=== PATIENT | male | born 1945 | race Caucasian/White ===

== ENCOUNTER → 2021-03-14 07:11 | Outpatient (CLI) | payer MEDICARE, SELFPAY ==
--- NOTE | 2021-03-14 07:18 | CT_ITS ---
STUDY: CT ABDOMEN AND PELVIS WITH AND WITHOUT CONTRAST REASON FOR EXAM: Male, 75 years old. 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 Oral and amp; IV Readi-CAT and amp; 100mL Isovue-300 was administered. Sagittal and coronal images were reconstructed. Individualized dose optimization techniques were used for this CT. COMPARISON: None. FINDINGS: Minimal increased markings at the lung bases suggests a mild scarring. Prior CABG coronary artery calcification. There is decreased attenuation of the liver consistent with steatosis. There are multiple small layering gallstones. Normal spleen. Normal pancreas. Normal bilateral adrenal glands. 2 mm nonobstructive calculus in the lower pole calyx of the right kidney. Normal left kidney. Normal visualized stomach. Normal small intestine. There are scattered colonic diverticula consistent with diverticulosis. The appendix is visualized and appears normal. There is diffuse atherosclerotic calcification of the abdominal aorta and its major visceral branches, without a demonstrated aneurysm. Normal inferior vena cava. Normal retroperitoneum. Normal urinary bladder. There are prostatic calcifications. Dense calcification of the vas deferens more prominent on the right side. Penile prosthesis. There is a moderate-sized umbilical hernia containing fat. There are diffuse degenerative changes of the visualized lumbar spine. CT/CT Abd/Pelvis W/WO Contrast IMPRESSION: Fatty infiltration of the liver. Calcification of the vas deferens more prominent on the right side. Prostatic calcification. Small gallstones. Electronically Signed: Estuardo Martínez MD at 9:58 EDT , Service support ,
[2021-03-14 07:30] LABS: CREATININE FINGERSTICK 1.1 mg/dL (0.70-1.30); EGFR FINGERSTICK > 60.0000 mL/min (>60)
== END ==
PROVIDERS: PCP Family Medicine; Referring Provider Nurse Practitioner Adult Health; Visit Provider Nurse Practitioner Adult Health
DX: R97.21 Rising PSA following treatment for malignant neoplasm of prostate (principal); Z85.46 Personal history of malignant neoplasm of prostate
CPT/HCPCS: 74178; Q9967

== ENCOUNTER → 2021-03-18 07:41 | Outpatient (CLI) | payer MEDICARE, SELFPAY ==
--- NOTE | 2021-03-18 07:51 | NM_ITS ---
CLINICAL: 75-year-old male with reported history of carcinoma of the prostate. WHOLE BODY 99m Tc MDP RADIONUCLIDE BONE SCINTIGRAPHY COMPARISON: Whole body bone scintigraphy study dated 03/18/2021 FINDINGS: Following the intravenous administration of 26.8 mCi of 99m Tc MDP, whole body bone images reveal: 1. Increased radiopharmaceutical concentration is defined in the acromioclavicular, sternoclavicular and glenohumeral compartments of both shoulders, wrist articulations bilaterally, mid cervical spine posteriorly on the left and right, eighth thoracic vertebra posteriorly on the right, 12th thoracic vertebra posteriorly on the left and right, mid cervical spine posteriorly on the right, lower cervical spine posteriorly on the left, medial tibial compartments of both knees, lateral tibial compartment of the left knee, right-left midfoot. 2. The remaining skeletal structures are scintigraphically unremarkable with normal-appearing renal images and urinary bladder activity identified. There is visualized apparent labeled urine artifact in the right lower anterior pelvis in region of the external genitalia. NM/Bone Scan Whole Body IMPRESSION: 1. The increase in radiopharmaceutical distribution visualized in the bilateral shoulders, right and left wrists, cervical and thoracic spine, knees bilaterally, right-left midfoot is most consistent with degenerative arthritis. 2. No other definitive scintigraphic abnormalities are demonstrated. There is no current typical scintigraphic evidence of diffuse axial skeletal metastatic disease on the current examination. Electronically Signed: Deric Crowley DO at 23:25 EDT Tel , Service support ,
== END ==
PROVIDERS: PCP Family Medicine; Referring Provider Nurse Practitioner Adult Health; Visit Provider Nurse Practitioner Adult Health
DX: R97.21 Rising PSA following treatment for malignant neoplasm of prostate (principal); Z85.46 Personal history of malignant neoplasm of prostate
CPT/HCPCS: 78306; A9503

== ENCOUNTER → 2021-04-23 13:46 | Outpatient (CLI) | payer MEDICARE, SELFPAY ==
--- NOTE | 2021-04-30 14:00 | PET_ITS ---
EXAMINATION: 18F Fluciclovine PET/CT CLINICAL HISTORY: A 75-year-old male with history of carcinoma of the prostate presenting for restaging examination. COMPARISON EXAMINATION: CT of the abdomen and pelvis report dated 03/14/21, whole body bone scintigraphy report dated 03/18/21. PROCEDURE: The patient received an intravenous bolus injection of 9.5 mCi of Axumin (fluciclovine F-18) via the right antecubital fossa, on the imaging table with the patient in the supine position followed by an intravenous normal saline flush. The patient in the supine position with arms above the head, CT scan for attenuation correction was performed immediately following the bolus injection and left up for 1-2 minutes. The PET scan acquisition was begun within 3-5 minutes following injection from mid-thigh to the base of the skull. The total scan time was registered between 20-30 minutes. Axumin (fluciclovine F-18) injection is indicated for positron emission tomography PET imaging in men with suspected prostate cancer recurrence based on elevation of the serum prostatic surface antigen (PSA) levels following prior treatment intervention. HEIGHT: 67 inches. WEIGHT: 270 lbs. FINDINGS: Head/Neck: There is symmetric radiopharmaceutical concentration defined in the bilateral parotid and submandibular glands. There is no evidence of abnormal increased radiopharmaceutical concentration on meticulous inspection of the visualized cranial vault and neck structures. CHEST: There is mild increased tracer concentration noted in the left ventricular myocardium. Otherwise, there is no evidence of abnormal increased radiopharmaceutical concentration on review of all three axis reconstructions. The CT of the chest demonstrates the following characteristics. There is evidence of prior median sternotomy. Atherosclerotic calcification is defined in the thoracic aorta without evidence of aneurysm formation. Coronary arterial calcification is observed. Calcified and noncalcified mediastinal soft tissue and scattered bilateral axillary soft tissue densities are ametabolic. There are no parenchymal densities-nodules defined in the right and left hemithorax with discernable increased FDG concentration. Abdomen/Pelvis: There is no evidence of abnormal increased radiopharmaceutical concentration on review of the abdomen-pelvis to include the carinal, sagittal, and axial reconstructions. Physiologic tracer uptake is defined in the hepatic, splenic parenchyma, the pancreatic head-tail, right and left kidneys, intestinal tract, and urinary bladder. Cholelithiasis is defined. Review of CT of the abdomen and pelvis is remarkable for the ensuing anatomic changes. There is atherosclerotic calcification defined in the abdominal aorta without evidence of dilatation-aneurysm formation. Pelvic arterial calcification is encountered. A fat containing periumbilical hernia is visualized. Right and left inguinal soft tissue densities with fatty hilus reveal no evidence of increased tracer uptake. A fat containing left inguinal hernia is observed. Postsurgical changes are noted in the region of the prostatic bed. Skeletal: Degenerative changes defined in the cervical, thoracic and lumbar spine demonstrate no evidence of glucose hypermetabolism. There is no definitive sclerotic, mixed sclerotic-lytic and/or primarily lytic changes noted on review of the axial and appendicular skeleton. PET/PET/CT Tumor Base -Thigh Subs IMPRESSION: 1. NEGATIVE EXAMINATION. There is no definitive quantitative scintigraphic evidence of fluciclovine avid viable neoplasm. Electronic Signature Deric Crowley D.O. Electronically Signed: Deric Crowley DO at 21:34 EDT Tel , Service support ,
== END ==
PROVIDERS: PCP Family Medicine; Referring Provider Nurse Practitioner Adult Health; Visit Provider Nurse Practitioner Adult Health
DX: R97.21 Rising PSA following treatment for malignant neoplasm of prostate (principal); Z85.46 Personal history of malignant neoplasm of prostate
CPT/HCPCS: 78815; A9552; A9588

== ENCOUNTER → 2023-04-23 | Outpatient (CLI) | payer MEDICARE, SELFPAY ==
--- NOTE | 2023-04-23 07:21 | CT_ITS ---
STUDY: CT ABDOMEN AND PELVIS WITH CONTRAST - URINARY TRACT REASON FOR EXAM: Male, 77 years old. RISING PSA FOLLOWING TREATMENT FOR NEOPLASM OF PROSTATE RADIATION DOSAGE (If Supplied By Facility): CTDIvol = ( 20.32 ) mGy, DLP = ( 1319.63 ) mGycm TECHNIQUE: IV 100mL Isovue-370 was administered. Transaxial images were obtained from the dome of the diaphragm to the symphysis pubis in the arterial, nephrographic and excretory phases. Multiplanar coronal and sagittal images were reformatted. Individualized Dose Optimization Techniques Were Used For This CT. COMPARISON: March 14, 2021 FINDINGS: There is mild compressive atelectasis at the lung bases. The visualized portions of the heart are within normal limits. Normal liver. Normal gallbladder and extrahepatic biliary system. Normal spleen. Normal pancreas. Normal bilateral adrenal glands. Normal visualized stomach. Normal small intestine. There is descending colon and sigmoid diverticulosis without evidence for acute diverticulitis. The appendix is visualized and appears normal. Normal abdominal aorta. No retroperitoneal adenopathy. There are mildly prominent preesophageal lymph nodes measuring up to 1.6 cm in greatest dimension. Normal right kidney. Normal left kidney. Evaluation of the urinary bladder is limited secondary to under distention. Prostate seed implants are identified. There is a small paraumbilical hernia containing fat. Normal osseous structures. CT/Abdomen/Pelvis W IV Cont ONLY IMPRESSION: Diverticulosis. Mildly prominent periesophageal lymph node. Small paraumbilical hernia containing fat. For further evaluation of the prostate gland and surrounding structures, MRI can be obtained. Electronically Signed: Anthony Garcia, at 8:46 EDT ,
[2023-04-23 07:48] LABS: CREATININE FINGERSTICK 1.1 mg/dL (0.70-1.30); EGFR FINGERSTICK > 60.0000 mL/min (>60)
== END | disposition home or self-care (01) ==
PROVIDERS: Referring Provider Urology; Visit Provider Urology
DX: R97.21 Rising PSA following treatment for malignant neoplasm of prostate (principal); C61 Malignant neoplasm of prostate
CPT/HCPCS: 74177; Q9967

== ENCOUNTER → 2023-04-27 | Outpatient (CLI) | payer MEDICARE, SELFPAY ==
--- NOTE | 2023-04-27 07:42 | NM_ITS ---
CLINICAL: 75-year-old male with history of primary prostate carcinoma and current elevation of the PSA. WHOLE BODY 99m Tc MDP RADIONUCLIDE BONE SCINTIGRAPHY COMPARISON: Previous whole body bone scintigraphy study dated 03/18/2021 FINDINGS: Following the intravenous administration of 25.0 mCi of 99m Tc MDP, whole body bone images reveal: 1. Relatively unchanged increased uptake is noted in the mid cervical spine posteriorly on the left and right, the ninth thoracic vertebra posteriorly on the right, the medial tibial compartments of both knees, the visualized portion of the wrists bilaterally, the glenohumeral compartments of both shoulders. 2. The remaining skeletal structures are scintigraphically unremarkable with normal-appearing renal images and urinary bladder activity identified. NM/Bone Scan Whole Body IMPRESSION: 1. The increase in radiopharmaceutical defined in the cervical and thoracic spine, bilateral knees, both wrist articulations, the shoulders bilaterally remains consistent with degenerative arthrosis. Large articulation synovitis may be expressed in the bilateral shoulders. 2. Compared to the examination dated 03/18/2021, there is continued scintigraphic absence of defined skeletal metastatic disease. Electronically Signed: Deric Crowley, at 8:55 EDT ,
== END | disposition home or self-care (01) ==
LOC: NM 07:41
PROVIDERS: Referring Provider Urology; Visit Provider Urology
DX: C61 Malignant neoplasm of prostate (principal); R97.21 Rising PSA following treatment for malignant neoplasm of prostate
CPT/HCPCS: 78306; A9503

== ENCOUNTER 2024-09-15 15:30 | Outpatient (RCR) | payer MEDICARE, SELFPAY ==
--- NOTE | 2024-08-02 09:59 | HP.PTEVAL_ITS ---
Patient's Visit Information Visit Information Visit Information: DOUG TALAVERA is a 78 year old M referred to Physical Therapy by NANCY WIGGINS with a diagnosis of S/P R TSA 07/21/24. Date of Evaluation: 08/02/24 Physical Therapist: CHRISTINA Michaels Visit Plan Frequency: 2x /Week Duration: 2 Months Plan: Called Dr Harris office Re: B LE pitting edema and the nurse called back and said she would message the Dr but most likley the pt will need to be seen by PCP but they will call the pt back after Dr Harris replies to the nurses message 2X/ week for follow Dr Harris protocol (in folder): (Phase I weeks 1-3) Pendulums, PROM to flexion to 130, ER to 30, No IR and AAROM as tolerated no IR with wall walks and table slides. Phase II (see protocol in folder). HEP: Pendulums fw/bw, side to side and circles Subjective Subjective: Pt had R Reverse Total Shoulder Arthroplasty on 07-21-24. Pt wears a sling off and on. He wears it at night and off and on during the day. Pt has been doing some exercises at home and he now hurts more today than he did the day before. He is L handed. He is sleeping pretty good and in a recliner. He is still icing but prob not as often as he should. Pt reports that he has swelling in his lower legs that he believe was not there last Thursday when he saw the Pain R shoulder pain: Pain Intensity (Out of 10): 3 Objective Objective: R shoulder PROM Flexion 120 and ER 29 degree -B Homans sign + B LE pitting edema Balance/Special Test Scores Quick DASH Score: 47.7250 Goals Goal 1:: I HEP Goal Time Frame: 8-12 Weeks Goal 2:: Increase AROM flexion to 140 degrees Goal Time Frame: 8-12 Weeks Goal 3:: Be able to return to full functional use of R UE without pain Goal Time Frame: 8-12 Weeks Goal 4:: Increase strength to 4/5 R shoulder flex. ER. IR by DC Goal Time Frame: 8-12 Weeks Rehabilitation Potential Rehabilitation Potential: Good Anticipated Interventions Patient/Client Instruction: Educate patient on: Condition and Plan of Care For the Purpose of:: To decrease pain, To decrease swelling/inflammation, To increase ROM, To improve nutrient delivery to tissue, To improve muscle performance and motor function, To improve ability to perform ADL's, To increase tolerance to activity/condition/position, To improve performance and independence with ADL's, To decrease level of supervision to perform tasks, To improve ability of physical actions for home/community/work/leisure, To improve gait and locomotor functions, To improve health of tissue, To decrease soft tissue restriction, To increase flexibility/ROM, To improve endurance, To improve balance and To improve safety with gait Therapeutic Exercise to Include: Strength training, Postural training, Flexibilty training, Neuromotor development, Passive ROM, Active ROM and Scapular Strength/Stabilization For the Purpose of:: To decrease pain, To increase ROM, To improve nutrient delivery to tissue, To improve muscle performance and motor function, To improve ability to perform ADL's, To increase tolerance to activity/condition/position, To improve performance and independence with ADL's, To decrease level of supervision to perform tasks, To improve ability of physical actions for home/community/work/leisure, To improve gait and locomotor functions, To improve health of tissue, To decrease soft tissue restriction, To increase flexibility/ROM and To improve balance Manual Therapy Techniques to Include: Passive ROM and Soft tissue mobilization For the Purpose of:: To increase ROM, To improve nutrient delivery to tissue and To increase flexibility/ROM Cryotherapy (ice pack, ice massage): Yes Thermo therapy (hot pack): Yes For the Purpose of:: To decrease pain, To decrease swelling/inflammation, To increase ROM and To improve nutrient delivery to tissue Text: Thank you for the opportunity to evaluate your patient. For Medicare and Medicare HMO plans, please review the plan of care and approve it. It will need to be FAXED BACK to us at [phone] for Medicare purposes. For Medicare only, by signing this I certify the plan of care. Please let me know if there are questions or concerns regarding this plan of care. Physician Signature: Date:
--- NOTE | 2024-08-30 11:22 | HP.PTREVAL ---
Re-Evaluation Intro: NANCY WIGGINS, It has been my pleasure to treat DOUG TALAVERA over the last 9 visits for S/P R TSA 07/21/24. Please see the progress note below for an update on the physical therapy plan of care! Subjective Subjective: Pt got a good report on his R shoulder and said to go ahead and keep going. Pt is leaving for [place] the first part of Oct and needs to be complete with HEP by then, Objective Objective/Function: R shoulder supine AROM flexion 135 degrees R shoulder sitting AROM flexion 132 degrees R shoulder IR in sitting PSIS R shoulder ER in sitting 50 degrees Pt had increase pain today with PROM and did better with AAROM and AROM Plan Plan Plan: Start strength on 09/15 per protocol 2X/ week for follow Dr Harris protocol (in folder): Phase II AAROM/AROM and may start isometric deltoid only Phase III begins on week 9 (09/15) Balance/Gait/Functional tests Balance/Special Test Scores Quick DASH Score: 9.0900 Goals Goals Goal 1:: I HEP Goal Time Frame: 8-12 Weeks Goal 2:: Increase AROM flexion to 140 degrees Goal Time Frame: 8-12 Weeks Goal 3:: Be able to return to full functional use of R UE without pain Goal Time Frame: 8-12 Weeks Goal 4:: Increase strength to 4/5 R shoulder flex. ER. IR by DC Goal Time Frame: 8-12 Weeks Anticipated Interventions Anticipated Interventions Patient/Client Instruction: Educate patient on: Condition and Plan of Care For the Purpose of:: To decrease pain, To decrease swelling/inflammation, To increase ROM, To improve nutrient delivery to tissue, To improve muscle performance and motor function, To improve ability to perform ADL's, To increase tolerance to activity/condition/position, To improve performance and independence with ADL's, To decrease level of supervision to perform tasks, To improve ability of physical actions for home/community/work/leisure, To improve gait and locomotor functions, To improve health of tissue, To decrease soft tissue restriction, To increase flexibility/ROM, To improve endurance, To improve balance and To improve safety with gait Therapeutic Exercise to Include: Strength training, Postural training, Flexibilty training, Neuromotor development, Passive ROM, Active ROM and Scapular Strength/Stabilization For the Purpose of:: To decrease pain, To increase ROM, To improve nutrient delivery to tissue, To improve muscle performance and motor function, To improve ability to perform ADL's, To increase tolerance to activity/condition/position, To improve performance and independence with ADL's, To decrease level of supervision to perform tasks, To improve ability of physical actions for home/community/work/leisure, To improve gait and locomotor functions, To improve health of tissue, To decrease soft tissue restriction, To increase flexibility/ROM and To improve balance Manual Therapy Techniques to Include: Passive ROM and Soft tissue mobilization For the Purpose of:: To increase ROM, To improve nutrient delivery to tissue and To increase flexibility/ROM Cryotherapy (ice pack, ice massage): Yes Thermo therapy (hot pack): Yes For the Purpose of:: To decrease pain, To decrease swelling/inflammation, To increase ROM and To improve nutrient delivery to tissue Re-Evaluation Ending Re-evaluation ending: Please do not hesitate to contact me at [phone] by phone or if you have questions or concerns regarding this new plan of care! Sincerely, Nakita Mckeon, MPT
--- NOTE | 2024-09-20 09:17 | HP.PTDCNRP_ITS ---
Patient Information Patient Information: DOUG TALAVERA was seen in my office for initial evaluation on 08/02/24. The following Plan of Care was established for this patient: POC Established Initial Frequency: 2x /Week Initial Duration: 2 Months Anticipated Interventions Patient/Client Instruction: Educate patient on: Condition and Plan of Care For the Purpose of:: To decrease pain, To decrease swelling/inflammation, To increase ROM, To improve nutrient delivery to tissue, To improve muscle performance and motor function, To improve ability to perform ADL's, To increase tolerance to activity/condition/position, To improve performance and independence with ADL's, To decrease level of supervision to perform tasks, To improve ability of physical actions for home/community/work/leisure, To improve gait and locomotor functions, To improve health of tissue, To decrease soft tissue restriction, To increase flexibility/ROM, To improve endurance, To improve balance and To improve safety with gait Therapeutic Exercise to Include: Strength training, Postural training, Flexibilty training, Neuromotor development, Passive ROM, Active ROM and Sc apular Strength/Stabilization For the Purpose of:: To decrease pain, To increase ROM, To improve nutrient delivery to tissue, To improve muscle performance and motor function, To improve ability to perform ADL's, To increase tolerance to activity/condition/position, To improve performance and independence with ADL's, To decrease level of supervision to perform tasks, To improve ability of physical actions for home/community/work/leisure, To improve gait and locomotor functions, To improve health of tissue, To decrease soft tissue restriction, To increase flexibility/ROM and To improve balance Manual Therapy Techniques to Include: Passive ROM and Soft tissue mobilization For the Purpose of:: To increase ROM, To improve nutrient delivery to tissue and To increase flexibility/ROM Cryotherapy (ice pack, ice massage): Yes Thermo therapy (hot pack): Yes For the Purpose of:: To decrease pain, To decrease swelling/inflammation, To increase ROM and To improve nutrient delivery to tissue Last Seen Last Seen: This patient was last seen in our office 09/15/24. Pertinent comments regarding their Physical therapy will appear below: ERIC PT. Pt has had a few family issues this week and wishes to be discharged to [facility]. He reports that he has full understanding of HEP. He reports 90% improvement. At this point I will be discontinuing this patient from physical therapy. I would be happy to see this patient again in the future if found appropriate by the physician. Thank you! Nakita Mckeon, CHRISTINA Balance/Gait/Functional tests Balance/Special Test Scores Quick DASH Score: 9.0900
== END 2024-09-15 19:00 | disposition home or self-care (01) ==
LOC: PT 15:30
PROVIDERS: Referring Provider Physician Assistant; Visit Provider Physician Assistant
DX: M19.011 Primary osteoarthritis, right shoulder (principal)
CPT/HCPCS: 97110; 97140; 97161; 97530

== ENCOUNTER 2024-12-09 10:00 | Outpatient (RCR) | payer MEDICARE, SELFPAY ==
--- NOTE | 2024-11-17 12:18 | HP.PTEVAL_ITS ---
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 Date of Evaluation: 11/17/24 Physical Therapist: Yg Goetz, PT, ATC Visit Plan Frequency: 3x /Week Duration: 6 Weeks Plan: L shoulder PROM/mobs, stretching, UBE, and HEP. Strengthening to begin when ordered by surgeon. Cp for pain Subjective Subjective: DOS: 11/10/24. Pt had a L reverse TSA performed at that time. Pt reports he started having limitations with pain and ROM about 3 years ago. Pt notes he had a reverse TSA performed on his R shoulder in July which he has really done well with. Pt notes he has a dull pain in his L shoulder today. Pt reports the only pain meds he is taking at his time is Tylenol. Pt denies any L UE tingling or numbness at this time. Pt notes he has been performing about 5 ex's he was given after the surgery consistently. Pt reports no sleep difficulty at this time secondary to pain. Pt is L hand dominent. 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 Pt lives by himself at this time, but has children that live very close to him if he needs help. Pt is I with IADL's at this time. 3/10 pain at rest, 8/10 pain at worst (when he moves it wrong). Pt reports he was told that he can wean out of his sling at this time. Pain L shoulder: Pain Intensity (Out of 10): 3 Pain Intensity Range: 8 Objective Objective: Neuro: B UE sensation is WNL to light touch. Observation: Incision is still healing at distal pole. No signs of infection at this time. MMT: R shoulder flex= 9, abd= 15, ER= 9, IR= 6 #F; L shoulder not tested this date. ROM: R shoulder AROM flex= 125, abd= 120, ER= 0, IR= WFL; L shoulder PROM flex= 45, scap= 30 degrees Balance/Special Test Scores Quick DASH Score: 65.9075 Goals Goal 1:: Decrease L shoulder pain x 50% to aid with sleep Goal Time Frame: 6-8 Weeks Goal 2:: Increase L shoulder AROM flex and abd to 90 degrees to aid with overhead lifting Goal Time Frame: 6-8 Weeks Goal 3:: Increase L shoulder strength to equal 90 percent of R shoulder strength to aid with IADL's Goal Time Frame: 6-8 Weeks Goal 4:: I with HEP Goal Time Frame: 6-8 Weeks Rehabilitation Potential Physical Therapy Diagnosis: Pt has L shoulder pain, weakness, and limited ROM secondary to L TSA Rehabilitation Potential: Good Anticipated Interventions Patient/Client Instruction: Educate patient on: Condition For the Purpose of:: To improve self management Therapeutic Exercise to Include: Strength training, Flexibilty training, Passive ROM, Active ROM and Scapular Strength/Stabilization For the Purpose of:: To decrease pain, To increase ROM and To improve muscle performance and motor function Cryotherapy (ice pack, ice massage): Yes For the Purpose of:: To decrease pain Text: Thank you for the opportunity to evaluate your patient. For Medicare and Medicare HMO plans, please review the plan of care and approve it. It will need to be FAXED BACK to us at [phone] for Medicare purposes. For Medicare only, by signing this I certify the plan of care. Please let me know if there are questions or concerns regarding this plan of care. Physician Sign ature: Date:
--- NOTE | 2024-12-09 10:30 | HP.PTREVAL ---
Re-Evaluation Intro: Anthony Mtz MD, It has been my pleasure to treat DOUG TALAVERA over the last 10 visits for L rev TSA 11/10/24. Please see the progress note below for an update on the physical therapy plan of care! Subjective Subjective: L shoulder is improving significantly Objective Objective/Function: L shoulder ROM: flex= 120, abd= 95, ER= 0, IR= moderately limited MMT not tested this date R shoulder pain ranges from -03/14 Plan Plan Plan: Begin strengthening when pt returns from vacation in January Balance/Gait/Functional tests Balance/Special Test Scores Quick DASH Score: 27.1713 Goals Goals Goal 1:: Decrease L shoulder pain x 50% to aid with sleep Goal Time Frame: 6-8 Weeks Goal 2:: Increase L shoulder AROM flex and abd to 90 degrees to aid with overhead lifting Goal Time Frame: 6-8 Weeks Goal 3:: Increase L shoulder strength to equal 90 percent of R shoulder strength to aid with IADL's Goal Time Frame: 6-8 Weeks Goal 4:: I with HEP Goal Time Frame: 6-8 Weeks Anticipated Interventions Anticipated Interventions Patient/Client Instruction: Educate patient on: Condition For the Purpose of:: To improve self management Therapeutic Exercise to Include: Strength training, Flexibilty training, Passive ROM, Active ROM and Scapular Strength/Stabilization For the Purpose of:: To decrease pain, To increase ROM and To improve muscle performance and motor function Cryotherapy (ice pack, ice massage): Yes For the Purpose of:: To decrease pain Re-Evaluation Ending Re-evaluation ending: Please do not hesitate to contact me at [phone] by phone or if you have questions or concerns regarding this new plan of care! Sincerely, Yg Goetz, PT, ATC
--- NOTE | 2025-02-28 15:56 | HP.PT.NRP ---
Patient Information Patient Information: DOUG TALAVERA was seen in my office for initial evaluation on 11/17/24. The following Plan of Care was established for this patient: POC Established Initial Frequency: 3x /Week Initial Duration: 6 Weeks Anticipated Interventions Patient/Client Instruction: Educate patient on: Condition For the Purpose of:: To improve self management Therapeutic Exercise to Include: Strength training, Flexibilty training, Passive ROM, Active ROM and Scapular Strength/Stabilization For the Purpose of:: To decrease pain, To increase ROM and To improve muscle performance and motor function Cryotherapy (ice pack, ice massage): Yes For the Purpose of:: To decrease pain Last Seen Last Seen: This patient was last seen in our office . Pertinent comments regarding their Physical therapy will appear below: Pt has not returned to [facility] is greater than 30 days and is discharged at this time. At this point I will be discontinuing this patient from physical therapy. I would be happy to see this patient again in the future if found appropriate by the physician. Thank you! Yg Goetz, PT, ATC Balance/Gait/Functional tests Balance/Special Test Scores Quick DASH Score: 27.2725
== END 2024-12-09 19:00 | disposition home or self-care (01) ==
LOC: PT 10:00
PROVIDERS: Referring Provider Orthopaedic Surgery; Visit Provider Orthopaedic Surgery
DX: M19.012 Primary osteoarthritis, left shoulder (principal)
CPT/HCPCS: 97110; 97140; 97161; 97530